=== PATIENT | female | born 1990 ===

== ENCOUNTER 2021-07-15 17:35 | Emergency (ER) | payer OTHER ==
[2021-07-15 20:02] VITALS: BP 127/76
== END 2021-07-15 22:00 | disposition left against medical advice (07) ==
LOC: ED 17:35
DX: M54.9 Dorsalgia, unspecified (principal); Z53.21 Procedure and treatment not carried out due to patient leaving prior to being seen by health care provider

== ENCOUNTER 2021-07-16 10:25 | Emergency (ER) | payer OTHER ==
[2021-07-16 11:00] VITALS: BP 118/76
--- NOTE | 2021-07-16 13:00 | Emergency Department Report ---
ED Back Pain/Injury HPI - General Chief Complaint: Back Pain/Injury Stated Complaint: BACK PAIN Time Seen by Provider: 07/16/21 12:37 Source: patient Limitations: No Limitations - History of Present Illness MD Complaint: back pain - Related Data Previous Rx's Medication Instructions Recorded Last Taken Type Naproxen 500 mg PO BID PRN #20 07/16/21 Unknown Rx Allergies Allergy/AdvReac Type Severity Reaction Status Date / Time No Known Allergies Allergy Verified 07/16/21 11:00 ED Review of Systems ROS: Stated complaint: BACK PAIN Other details as noted in HPI ED Past Medical Hx - Medications Home Medications: Home Medications Medication Instructions Recorded Confirmed Last Taken Type Naproxen 500 mg PO BID PRN #20 07/16/21 Unknown Rx ED Physical Exam - General Limitations: No Limitations ED Course Vital Signs 07/16/21 10:59 Temperature 98.6 F Pulse Rate 87 Respiratory 14 Rate Blood Pressure 118/76 [Right] O2 Sat by Pulse 100 Oximetry Critical care attestation.: If time is entered above; I have spent that time in minutes in the direct care of this critically ill patient, excluding procedure time. ED Disposition Clinical Impression: Lower back pain Disposition: 01 HOME / SELF CARE / HOMELESS Is pt being admited?: No Does the pt Need Aspirin: No Condition: Stable Instructions: Acute Back Pain, Adult, Back Exercises, [id number] Additional Instructions: Recommend to take pain medication as needed. Follow-up with a back specialist or primary care provider. Increase your fluid intake. Prescriptions: Naproxen 500 mg PO BID PRN #20 PRN Reason: Pain , Severe (7-10) Referrals: [facility] [Provider Group] - 3-5 Days Time of Disposition: 13:13
== END 2021-07-16 14:08 | disposition home or self-care (01) ==
LOC: ED 10:25
DX: M54.50 Low back pain, unspecified (principal)
CPT/HCPCS: 99282